=== PATIENT | male | born 1985 | race American Indian/Alaskan Native ===

== ENCOUNTER 2022-02-02 00:01 | Emergency (ER) | payer SELFPAY ==
[2022-02-02 00:26] VITALS: BP 152/98
--- NOTE | 2022-02-02 01:36 | XRay Report ---
RIGHT FOOT 3 VIEW(S) INDICATION / CLINICAL INFORMATION: Right foot injury COMPARISON: None available. FINDINGS: No fracture, dislocation, or significant soft tissue abnormality is demonstrated. No radiopaque forei gn bodies are identified. IMPRESSION: 1. No acute pathology. No significant abnormality. Signer Name: Eliseo Meza II, MD Signed: 02/02/2022 1:32 AM Workstation Name: [id number]
== END 2022-02-02 03:30 | disposition home or self-care (01) ==
LOC: ED 00:01
DX: M79.671 Pain in right foot (principal); Z53.21 Procedure and treatment not carried out due to patient leaving prior to being seen by health care provider

== ENCOUNTER 2022-02-05 16:56 | Emergency (ER) | payer SELFPAY ==
[2022-02-05 17:09] VITALS: BP 103/79
--- NOTE | 2022-02-05 17:20 | Emergency Department Report ---
ED Lower Extremity HPI - General Chief Complaint: Extremity Injury, Lower Stated Complaint: RT FOOT INJURY Time Seen by Provider: 02/05/22 17:18 Source: patient Mode of arrival: Ambulatory Limitations: No Limitations - History of Present Illness Initial Comments: 36 YO CO LEFT FOOT PAIN P HITTING IT ON [employer] LAST THURSDAY HE WAS IN ER THURSDAY BUT [facility]BS COMES BACK TODAY REQUESTING WORK NOTE AMBULATORY TO ER MD Complaint: ankle injury -: Gradual Type of Injury: other Place: work Severity: mild Severity scale (0 -10): 1 Improves With: immobilization Worsens With: movement Context: direct blow - Related Data Allergies Allergy/AdvReac Type Severity Reaction Status Date / Time No Known Allergies Allergy Verified 02/05/22 17:10 ED Review of Systems ROS: Stated complaint: RT FOOT INJURY Other details as noted in HPI Comment: All other systems reviewed and negative ED Past Medical Hx - Past Medical History Previous Medical History?: No - Surgical History Past Surgical History?: No - Family History Family history: no significant - Social History Smoking Status: Never Smoker Substance Use Type: Marijuana ED Physical Exam - General Limitations: No Limitations General appearance: alert, in no apparent distress - Head Head exam: Present: atraumatic, normocephalic - Eye Eye exam: Present: normal appearance - ENT ENT exam: Present: mucous membranes moist - Neck Neck exam: Present: normal inspection - Respiratory Respiratory exam: Present: normal lung sounds bilaterally. Absent: respiratory distress - Cardiovascular Cardiovascular Exam: Present: regular rate, normal rhythm. Absent: systolic murmur, diastolic murmur, rubs, gallop - GI/Abdominal GI/Abdominal exam: Present: soft, normal bowel sounds - Rectal Rectal exam: Present: deferred - Extremities Exam Extremities exam: Present: normal inspection - Back Exam Back exam: Present: normal inspection - Neurological Exam Neurological exam: Present: alert, oriented X3 - Psychiatric Psychiatric exam: Present: normal affect, normal mood - Skin Skin exam: Present: warm, dry, intact, normal color. Absent: rash ED Course Vital Signs 02/05/22 17:06 Temperature 98 F Pulse Rate 83 Respiratory 18 Rate Blood Pressure 103/79 [Left] ED Lower Extremity MDM - Radiology Data Radiology results: report reviewed, image reviewed REVIEWED FROM THURSDAY - Medical Decision Making Vital Signs 02/05/22 17:06 Temperature 98 F Pulse Rate 83 Respiratory 18 Rate Blood Pressure 103/79 [Left] NEUROVASC INTACT AMBULATORY XRAY NEG DC HOME WITH DC PLAN OF CARE. PT VERBALIZES UNDERSTANDING OF PLAN OF CARE- INCLUDING DIET, MEDS, ACTIVITY AND FOLLOW UP - Differential Diagnosis FOOT PAIN Critical care attestation.: If time is entered above; I have spent that time in minutes in the direct care of this critically ill patient, excluding procedure time. ED Disposition Clinical Impression: Contusion Disposition: HOME / SELF CARE / HOMELESS Is pt being admited?: No Does the pt Need Aspirin: No Condition: Stable Additional Instructions: MOTRIN OR TYLENOL FOR PAIN IF PAIN PERSISTS FOLLOW UP WITH ORTHO MD REFERRAL BELOW XRAYS NORMAL Referrals: RICKY RONQUILLO MD [Staff Physician] - 3-5 Days Forms: Accompanied Note, Work/School Release Form(ED) Time of Disposition: 17:19
== END 2022-02-05 17:20 | disposition home or self-care (01) ==
LOC: ED 16:56
DX: S90.32XA Contusion of left foot, initial encounter (principal); F12.90 Cannabis use, unspecified, uncomplicated; Z79.899 Other long term (current) drug therapy; W22.8XXA Striking against or struck by other objects, initial encounter; Y93.89 Activity, other specified; Y92.89 Other specified places as the place of occurrence of the external cause; Y99.8 Other external cause status
CPT/HCPCS: 99281; 99282